=== PATIENT | male | born 1960 | race Caucasian/White ===

== ENCOUNTER 2022-07-02 14:47 | Emergency (ER) | payer MEDICARE, MEDICAID ==
[2022-07-02] MEDS ORDERED: Sodium Chloride 0.9% 10 ML Syringe FLUSH PRN (14:57)
[2022-07-02 15:42] LABS: CHLORIDE,CL 107 mmol/L (98-107); SODIUM,NA 140 mmol/L (136-145)
[2022-07-02 15:43] LABS: ESTIMATED GFR 23 mL/min (>=60)
[2022-07-02] MEDS: Sodium Chloride 0.9% 1,000 ML IV SCH (16:23)
[2022-07-02] MEDS: Acetaminophen 500 MG Tab PO ONE (17:09)
== END 2022-07-02 17:15 | disposition home or self-care (01) ==
LOC: VM.ED 14:47
DX: U07.1 COVID-19 (principal); I12.9 Hypertensive chronic kidney disease with stage 1 through stage 4 chronic kidney disease, or unspecified chronic kidney disease; E11.22 Type 2 diabetes mellitus with diabetic chronic kidney disease; N18.30 Chronic kidney disease, stage 3 unspecified; J44.9 Chronic obstructive pulmonary disease, unspecified; Z88.0 Allergy status to penicillin; Z86.16 Personal history of COVID-19
CPT/HCPCS: 36415; 71045; 80053; 83605; 83735; 84100; 85025; 85610; 85730; 86140; 87040; 96360; 99285-25; A9270-GY; J7030